=== PATIENT | female | born 1980 | race African-American/Black ===

== ENCOUNTER 2017-11-13 17:43 | Inpatient (IN) ==
[2017-11-13] MEDS ORDERED: IBUPROFEN 600 MG TABLET PO STA (19:15)
[2017-11-13] MEDS ORDERED: IBUPROFEN 600 MG TABLET ONE (19:29)
[2017-11-13 19:32] LABS: Basophils % 0.2 % (0.0-0.8); Eosinophils % 0.3 % (0.00-10.9); Hematocrit 33.6 VOL% (35.7-47.0); Hemoglobin 10.6 GM/DL (12.0-16.0); Immature Granulocytes % 0.3 %; Immature Granulocytes Absolute 0.03 #; Lymphocytes # 2.5 10*3/uL (1.4-4.0); Lymphocytes % 29.5 % (21.3-54.2); Mean Corpuscular HGB Conc 31.5 GM/DL (32-36); Mean Corpuscular Hemoglobin 25 PG (27-34); Mean Corpuscular Volume 80.2 FL (87-102); Mean Platelet Volume 13.2 FL (9.6-12.0); Monocytes # 0.5 10*3/uL (0.11-0.8); Monocytes % 6.3 % (1.7-12.7); Neutrophils # 5.4 10*3/uL (1.4-7.4); Neutrophils % 63.4 % (38.7-73.9); Platelet Count 164 T/CUMM (130-400); Red Blood Count 4.19 MC/CUMM (3.8-5.5); Red Cell Distribution Width 13.7 % (9.3-17.3); White Blood Count 8.6 T/CUMM (4-12)
[2017-11-13] MEDS ORDERED: CEFTAROLINE 600 MG in SODIUM CHLORIDE 0.9% 100 ML IV STA (19:53)
[2017-11-13 19:54] LABS: Alanine Aminotransferase 19 U/L (13-56); Albumin 2.9 G/DL (3.4-5.0); Alkaline Phosphatase 120 U/L (45-117); Aspartate Amino Transferase 14 U/L (0-37); Bilirubin,Total < 0.39 MG/DL (0.2-1.0); Blood Urea Nitrogen 15 MG/DL (7-18); Glucose 398 MG/DL (74-106); Osmolality,Calculated 283.4 MOS/KG (273-304); Potassium 3.8 MMOL/L (3.5-5.1); Sodium 133 MMOL/L (136-145)
[2017-11-13] MEDS ORDERED: INSULIN REGULAR 100 UNIT/ML SUBCUT STA (19:55)
[2017-11-13] MEDS ORDERED: ONDANSETRON 4 MG/2 ML VIAL ONE (21:11)
[2017-11-13] MEDS ORDERED: HYDROmorphone 2 MG/1 ML VIAL IV ONE (21:12)
[2017-11-13] MEDS ORDERED: HYDROmorphone 2 MG/1 ML VIAL ONE (21:12)
[2017-11-13] MEDS ORDERED: ONDANSETRON 4 MG/2 ML VIAL IV STA (21:12)
[2017-11-13] MEDS ORDERED: ACETAMINOPHEN 500 MG TABLET PO STA (21:29)
[2017-11-13] MEDS ORDERED: ACETAMINOPHEN 500 MG TABLET ONE (21:34)
[2017-11-13] MEDS ORDERED: GLUCAGON 1 MG VIAL IM PRN (23:20)
[2017-11-13] MEDS ORDERED: DEXTROSE 50% 25 GM/50 ML VIAL IV PRN (23:20)
[2017-11-13] MEDS ORDERED: ACETAMINOPHEN 325 MG TABLET PO PRN (23:20)
[2017-11-13] MEDS ORDERED: ONDANSETRON 4 MG/2 ML VIAL IV PRN (23:20)
[2017-11-14] MEDS: SODIUM CHLORIDE 0.9% 1,000 ML IV SCH ×3 (00:47→13:45)
[2017-11-14] MEDS: INSULIN REGULAR 100 UNIT/ML SUBCUT SCH ×8 (01:22→21:00)
[2017-11-14] MEDS: ATORVASTATIN 10 MG TABLET PO SCH ×2 (01:23→20:56)
[2017-11-14] MEDS: INSULIN GLARGINE 100 UNIT/ML SUBCUT SCH ×3 (01:23→20:57)
[2017-11-14] MEDS: CEFTAROLINE 600 MG in SODIUM CHLORIDE 0.9% 50 ML IV SCH ×3 (01:45→23:11)
[2017-11-14] MEDS: TRAVOPROST 0.004% OPH SOLN 2.5 ML BOTTLE BOTH EYES SCH ×2 (01:46→20:57)
[2017-11-14] MEDS: BRIMONIDINE/TIMOLOL OPH SOLN 5 ML BOTTLE BOTH EYES SCH ×3 (01:46→20:57)
[2017-11-14 06:08] LABS: Basophils % 0.2 % (0.0-0.8); Eosinophils % 0.5 % (0.00-10.9); Hemoglobin 9.5 GM/DL (12.0-16.0); Immature Granulocytes % 0.5 %; Immature Granulocytes Absolute 0.04 #; Lymphocytes # 2.4 10*3/uL (1.4-4.0); Lymphocytes % 28.7 % (21.3-54.2); Mean Corpuscular HGB Conc 31.7 GM/DL (32-36); Mean Corpuscular Hemoglobin 25 PG (27-34); Mean Corpuscular Volume 79.4 FL (87-102); Mean Platelet Volume 13.3 FL (9.6-12.0); Monocytes # 0.8 10*3/uL (0.11-0.8); Monocytes % 9.2 % (1.7-12.7); Neutrophils # 5.2 10*3/uL (1.4-7.4); Neutrophils % 60.9 % (38.7-73.9); Platelet Count 158 T/CUMM (130-400); Red Blood Count 3.78 MC/CUMM (3.8-5.5); Red Cell Distribution Width 13.9 % (9.3-17.3); White Blood Count 8.5 T/CUMM (4-12)
[2017-11-14 06:31] LABS: Albumin 2.5 G/DL (3.4-5.0); Bilirubin,Total 0.7 MG/DL (0.2-1.0); Calcium 8.1 MG/DL (8.5-10.1); Potassium 4.2 MMOL/L (3.5-5.1)
[2017-11-14 08:05] LABS: Eosinophils 1 % (0-10); Giant Platelets Few; Hypochromasia 1+; Lymphocytes 33 % (20-55); Platelet Estimate Normal; Segmented Neutrophils 61 % (50-85); Total Cells Counted 100
[2017-11-14] MEDS: VENLAFAXINE XR 37.5 MG CAPSULE PO SCH (08:35)
[2017-11-14] MEDS: VALSARTAN/HCTZ 160-12.5 MG TABLET PO SCH (08:48)
[2017-11-14] MEDS: HYDROmorphone 2 MG/1 ML VIAL IV PRN ×2 (08:50→18:00)
[2017-11-14] MEDS ORDERED: BUPIVACAINE 0.25% 50 ML VIAL ONE (12:05)
[2017-11-14] MEDS ORDERED: PROPOFOL 200 MG/20 ML VIAL IV ONE (12:59)
[2017-11-14] MEDS ORDERED: SEVOFLURANE 1 UNIT/15 MINUTE INH ONE (13:00)
[2017-11-14] MEDS ORDERED: KETOROLAC 30 MG/1 ML VIAL ONE (13:00)
[2017-11-14] MEDS ORDERED: METOCLOPRAMIDE 10 MG/2 ML VIAL ONE (13:00)
[2017-11-14] MEDS ORDERED: HYDROmorphone 2 MG/1 ML VIAL ONE (13:00)
[2017-11-14] MEDS ORDERED: MIDAZOLAM 2 MG/2 ML VIAL ONE (13:00)
[2017-11-15 06:20] LABS: Calcium 7.6 MG/DL (8.5-10.1); Osmolality,Calculated 275.2 MOS/KG (273-304); Potassium 4.6 MMOL/L (3.5-5.1)
[2017-11-15] MEDS: SODIUM CHLORIDE 0.9% 1,000 ML IV SCH ×2 (06:29→17:19)
[2017-11-15] MEDS: VALSARTAN/HCTZ 160-12.5 MG TABLET PO SCH (08:32)
[2017-11-15] MEDS: VENLAFAXINE XR 37.5 MG CAPSULE PO SCH (08:32)
[2017-11-15] MEDS: BRIMONIDINE/TIMOLOL OPH SOLN 5 ML BOTTLE BOTH EYES SCH ×2 (08:32→20:56)
[2017-11-15] MEDS: INSULIN REGULAR 100 UNIT/ML SUBCUT SCH ×6 (08:33→20:57)
[2017-11-15] MEDS: INSULIN GLARGINE 100 UNIT/ML SUBCUT SCH ×2 (08:34→20:56)
[2017-11-15] MEDS: CEFTAROLINE 600 MG in SODIUM CHLORIDE 0.9% 50 ML IV SCH (11:48)
[2017-11-15] MEDS: SODIUM HYPOCHLORITE 0.25% IRRIG 473 ML BOTTLE TOP SCH (14:00)
[2017-11-15] MEDS: TRAVOPROST 0.004% OPH SOLN 2.5 ML BOTTLE BOTH EYES SCH (20:56)
[2017-11-15] MEDS: ATORVASTATIN 10 MG TABLET PO SCH (20:56)
[2017-11-15] MEDS: CEFTAROLINE 600 MG in SODIUM CHLORIDE 0.9% 100 ML IV SCH (23:24)
[2017-11-16] MEDS: SODIUM CHLORIDE 0.9% 1,000 ML IV SCH (04:57)
[2017-11-16] MEDS: INSULIN REGULAR 100 UNIT/ML SUBCUT SCH ×3 (09:37→13:35)
[2017-11-16] MEDS: VALSARTAN/HCTZ 160-12.5 MG TABLET PO SCH (09:38)
[2017-11-16] MEDS: INSULIN GLARGINE 100 UNIT/ML SUBCUT SCH (09:38)
[2017-11-16] MEDS: VENLAFAXINE XR 37.5 MG CAPSULE PO SCH (09:39)
[2017-11-16] MEDS: BRIMONIDINE/TIMOLOL OPH SOLN 5 ML BOTTLE BOTH EYES SCH (09:39)
[2017-11-16] MEDS: CEFTAROLINE 600 MG in SODIUM CHLORIDE 0.9% 100 ML IV SCH (12:15)
[2017-11-16 12:42] VITALS: BP 114/78
[2017-11-16] MEDS: SODIUM HYPOCHLORITE 0.25% IRRIG 473 ML BOTTLE TOP SCH (13:15)
== END 2017-11-16 13:50 | disposition home health service (06) | DRG 364 ==
LOC: N.ED 17:43 → N.EDINP 20:18 → N.3E 22:00
PROVIDERS: ADMIT Surgery; ATTEND Surgery